=== PATIENT | female | born 1980 ===

== ENCOUNTER 2017-08-15 02:08 | Emergency (ER) | payer OTHER ==
[2017-08-15 02:16] VITALS: RESP 18
[2017-08-15 02:27] VITALS: TEMP 97.1
[2017-08-15] MEDS ORDERED: Sodium Chloride 0.9% 1,000 ML IV STA (02:31)
--- NOTE | 2017-08-15 02:37 | ED PDOC ---
Arrival/HPI - General Chief Complaint: Abdominal Pain Time Seen by Provider: 08/15/17 02:31 Historian: Patient - History of Present Illness Narrative History of Present Illness (Text): 08/15/17 02:32 A 37 year old female, with no significant past medical history, presents to the emergency department complaining of right flank pain. The patient states that the discomfort began yesterday in the right flank area and is currently radiating toward the right lower abdomen. The patient notes that she took Tylenol for the pain but began to vomit shortly after she took it. The patient denies fevers, chills, headache, dizziness, chest pain, shortness of breath, dyspnea on exertion, cough, diarrhea, neck pain, urinary/bowel changes, vaginal discharge or any other complaint. Time/Duration: Other (Yesterday) Symptom Onset: Sudden Symptom Course: Unchanged Activities at Onset: Rest, Light Context: Home Past Medical History - Provider Review Nursing Documentation Reviewed: Yes - Cardiac Hx Hypertension: Yes - Pulmonary Hx Respiratory Disorders: No - Neurological Hx Neurological Disorder: No - HEENT Hx HEENT Disorder: No - Renal Hx Renal Disorder: No - Endocrine/Metabolic Hx Hypothyroidism: Yes - Hematological/Oncological Hx Blood Disorders: No - Integumentary Hx Dermatological Disorder: No - Musculoskeletal/Rheumatological Hx Musculoskeletal Disorders: No - Gastrointestinal Hx Gastrointestinal Disorders: No - Genitourinary/Gynecological Hx Genitourinary Disorders: No - Psychiatric Hx Anxiety: Yes Hx Depression: Yes Hx Substance Use: No - Surgical History Hx Hysterectomy: Yes - Anesthesia Hx Anesthesia: No Family/Social History - Physician Review Nursing Documentation Reviewed: Yes Family/Social History: No Known Family HX Smoking Status: Never Smoked Hx Alcohol Use: No Hx Substance Use: No Allergies/Home Meds Allergies/Adverse Reactions: Allergies No Known Allergies Allergy (Verified 08/15/17 02:17) Home Medications: Home Meds Medication Instructions Recorded Confirmed Levothyroxine Sodium [Unithroid] 50 mcg PO DAILY 08/15/17 08/15/17 Losartan [Cozaar] 50 mg PO DAILY 08/15/17 08/15/17 Mirtazapine [Remeron] 45 mg PO HS 08/15/17 08/15/17 Venlafaxine [Effexor XR] 150 mg PO QAM 08/15/17 08/15/17 clonazePAM [clonAZEPAM] 1 mg PO QAM 08/15/17 08/15/17 clonazePAM [clonAZEPAM] 2 mg PO HS 08/15/17 08/15/17 Review of Systems - Physician Review All systems were reviewed & negative as marked: Yes - Review of Systems Constitutional: absent: Fevers Cardiovascular: absent: Chest Pain Physical Exam - Physical Exam Narrative Physical Exam (Text): 08/15/17 02:38 Constitutional: Appears uncomfortable. Head: Normocephalic. Atraumatic. Eyes: PERRL. ENT: Moist mucous membranes. Neck: Supple. Cardiovascular: Regular rate. Chest: No tenderness. Respiratory: Clear to auscultation bilaterally. GI: Soft Nondistended. Lower abdominal tenderness. No guarding. Back: Right CVA tenderness. Musculoskeletal: No tenderness or swelling of extremities. Skin: No rash. Neurologic: Alert, no focal deficit. Vital Signs Reviewed: Yes Vital Signs Temp Pulse Resp BP Pulse Ox 08/15/17 04:47 67 18 127/69 100 08/15/17 02:26 97.1 F L 82 18 132/83 97 08/15/17 02:12 98.3 F 87 18 139/83 99 Temperature: Afebrile Blood Pressure: Normal Pulse: Regular Respiratory Rate: Normal Appearance: Positive for: Well-Appearing, Non-Toxic, Comfortable Pain Distress: None Mental Status: Positive for: Alert and Oriented X 3 Medical Decision Making ED Course and Treatment: 08/15/17 02:39 Impression: A 37 year old female presents to the emergency department complaining of right flank pain radiating to the right lower abdomen. Plan: -- Abdomen/Pelvis CT -- Labs -- Urinalysis -- Toradol, Zofran, and IV Fluids -- Reassess and disposition Progress Notes: CT Abdomen and Pelvis Without Intravenous Contrast EXAM DATE/TIME: 08/15/2017 2:31 AM Dictated and Authenticated by: Manoj Vazquez MD 08/15/2017 4:24 AM Eastern Time ([place] & [place]) IMPRESSION: Moderate right hydronephrosis secondary to two 3 mm stones at the uterovesical junction. - Lab Interpretations Lab Results: 08/15/17 02:30 08/15/17 02:30 Lab Results 08/15/17 02:34: Urine Color Yellow, Urine Appearance Clear, Urine pH 6.5, Ur Specific [place] >= 1.030, Urine Protein 100 H, Urine Glucose (UA) Negative, Urine Ketones 40 H, Urine Blood Large H, Urine Nitrate Negative, Urine Bilirubin Negative, Urine Urobilinogen 0.2, Ur Leukocyte Esterase Negative, Urine RBC 10 - 15, Urine WBC 0 - 2, Ur Epithelial Cells 1 - 3, Urine Bacteria Small, Urine HCG, Qual Negative 08/15/17 02:30: Sodium 146, Potassium 4.2, Chloride 105, Carbon Dioxide 26, Anion Gap 19, BUN 14, Creatinine 0.9, Est GFR ( Amer) > 60, Est GFR (Non- Af Amer) > 60, Random Glucose 102, Calcium 9.6, Total Bilirubin 0.4, AST 30, ALT 26, Alkaline Phosphatase 43, Total Protein 8.1, Albumin 4.7, Globulin 3.4, Albumin/Globulin Ratio 1.4 08/15/17 02:30: WBC 13.9 H, RBC 4.59, Hgb 14.9, Hct 42.2, MCV 91.9, MCH 32.5, MCHC 35.3, RDW 11.9, Plt Count 221, MPV 11.4 H, Gran % 83.0 H, Lymph % (Auto) 12.2 L, [place] % (Auto) 3.4, Eos % (Auto) 1.1 L, Baso % (Auto) 0.3, Gran # 11.56 H , Lymph # (Auto) 1.7, [place] # (Auto) 0.5, Eos # (Auto) 0.2, Baso # (Auto) 0.04 I have reviewed the lab results: Yes - RAD Interpretation Radiology Orders: 08/15/17 02:31 ABD & PELVIS W/O PO OR IV CONT [CT] Stat - Medication Orders Current Medication Orders: Discontinued Medications Acetaminophen (Tylenol 325mg Tab) 975 mg PO STAT STA Stop: 08/15/17 04:01 Last Admin: 08/15/17 04:14 Dose: 975 mg MAR Pain/Vitals Document 08/15/17 04:14 MANI (Rec: 08/15/17 04:15 MANI [id number]) Pain Reassessment Is This A Pain ReAssessment? Yes Sleep Is patient sleeping during reassessment? No Presence of Pain Presence of Pain Yes Pain Scale Used Pain Scale Used Numeric Location Upper or Lower Lower Pain Location Body Site Abdomen Description Intermittent Intensity 5 Scale Used Numeric Pain Behavior Rubbing Site Sodium Chloride (Sodium Chloride 0.9%) 1,000 mls @ 999 mls/hr IV .Q1H1M STA Stop: 08/15/17 03:31 Last Admin: 08/15/17 02:46 Dose: 999 mls/hr eMAR Start Stop Document 08/15/17 02:46 RG (Rec: 08/15/17 02:46 [id number]) Intravenous Solution Start Date 08/15/17 Start Time 02:46 Ketorolac Tromethamine (Toradol) 30 mg IVP STAT STA Stop: 08/15/17 02:32 Last Admin: 08/15/17 02:41 Dose: 30 mg MAR Pain Assessment Document 08/15/17 02:41 RG (Rec: 08/15/17 02:42 [id number]) Pain Reassessment Is this a pain reassessment? Yes Presence of Pain Presence of Pain Yes Location Left, Right or Bilateral Right Upper or Lower Lower Pain Location Body Site Back Description Description Constant Pain Behavior Rubbing Site IVP Administration Document 08/15/17 02:41 RG (Rec: 08/15/17 02:42 [id number]) Charges for Administration # of IVP Administrations 1 Re-Assess: [facility] Pain Assessment Document 08/15/17 03:41 RG (Rec: 08/15/17 04:01 [id number]) Pain Reassessment Is this a pain reassessment? Yes Sleep Is patient sleeping during reassessment? No Presence of Pain Presence of Pain Yes Description Pain not relieved and LIP/MD was Yes notified Ondansetron HCl (Zofran Inj) 8 mg IVP STAT STA Stop: 08/15/17 02:32 Last Admin: 08/15/17 02:44 Dose: 8 mg IVP Administration Document 08/15/17 02:44 RG (Rec: 08/15/17 02:46 [id number]) Charges for Administration # of IVP Administrations 1 Tamsulosin HCl (Flomax) 0.4 mg PO STAT STA Stop: 08/15/17 04:01 Last Admin: 08/15/17 04:13 Dose: 0.4 mg - Scribe Statement The provider has reviewed the documentation as recorded by the Anurag Sanchez Provider Scribe Attestation: All medical record entries made by the Scribe were at my direction and personally dictated by me. I have reviewed the chart and agree that the record accurately reflects my personal performance of the history, physical exam, medical decision making, and the department course for this patient. I have also personally directed, reviewed, and agree with the discharge instructions and disposition. Disposition/Present on Arrival - Present on Arrival Any Indicators Present on Arrival: No History of DVT/PE: No History of Uncontrolled Diabetes: No Urinary Catheter: No History of Decub. Ulcer: No History Surgical Site Infection Following: None - Disposition Have Diagnosis and Disposition been Completed?: Yes Diagnosis: Kidney stone Disposition: HOME/ ROUTINE Disposition Time: 04:36 Patient Plan: Discharge Condition: STABLE Discharge Instructions (ExitCare): Kidney Stones (DC) Prescriptions: Acetaminophen [Tylenol 325mg tab] 2 tab PO Q4H #30 tab Ibuprofen [Motrin] 1 tab PO Q6 #30 tab Ondansetron ODT [Zofran ODT] 4 mg PO Q8 #12 odt Tamsulosin [Flomax] 0.4 mg PO DAILY #5 cap Referrals: Chetna Erickson MD [Staff Provider] - Follow up with primary Forms: Organizer (Filipino)
[2017-08-15 02:55] LABS: BASO # 0.04 K/mm3 (0.0-2.0); BASO % 0.3 % (0.0-3.0); EOS # 0.2 (0.0-0.7); EOS % 1.1 % (1.5-5.0); GRAN # 11.56 (1.4-6.5); HEMOGLOBIN 14.9 g/dL (12.0-16.0); LYMPH # 1.7 (1.2-3.4); LYMPH % 12.2 % (22.0-35.0); MEAN CELL VOLUME 91.9 fl (80.0-105.0); MEAN CORPUSCULAR HEMOGLOBIN 32.5 pg (25.0-35.0); MEAN CORPUSCULAR HGB CONC 35.3 g/dl (31.0-37.0); MEAN PLATELET VOLUME 11.4 fl (7.0-11.0); MONO # 0.5 (0.1-0.6); MONO % 3.4 % (1.0-6.0); RBC 4.59 10^6/uL (3.5-6.1); RED CELL DISTRIBUTION WIDTH 11.9 % (11.5-14.5); WHITE BLOOD COUNT 13.9 10^3/ul (4.5-11.0)
[2017-08-15 02:57] LABS: PH,URINE 6.5 (4.7-8.0); URINE BILIRUBIN NEGATIVE (NEGATIVE); URINE BLOOD LARGE (NEGATIVE); URINE GLUCOSE (UA) NEGATIVE (NEGATIVE); URINE LEUKOCYTE ESTERASE NEGATIVE Leu/uL (NEGATIVE); URINE PROTEIN 100 mg/dL (<30 mg/dL); URINE UROBILINOGEN 0.2 E.U./dL (<1 E.U./dL)
[2017-08-15 03:01] LABS: ALB/GLOB RATIO 1.4 (1.1-1.8); ALBUMIN 4.7 g/dL (3.0-4.8); ALT/SGPT 26 U/L (7-56); AST/SGOT 30 U/L (14-36); BLOOD UREA NITROGEN 14 mg/dL (7-21); CALCIUM 9.6 mg/dL (8.4-10.5); GFR AFRICAN-AMERICAN > 60; GFR NON-AFRICAN AMERICAN > 60
[2017-08-15 03:04] LABS: HCG,QUALITATIVE URINE NEGATIVE (NEGATIVE); URINE APPEARANCE CLEAR (CLEAR); URINE COLOR YELLOW (YELLOW)
[2017-08-15 03:16] LABS: URINE BACTERIA SMALL (NEG); URINE WBC 0 - 2 /hpf (0-6)
[2017-08-15 04:48] VITALS: BP 127/69; PULSE 67; O2SAT 100
--- NOTE | 2017-08-15 09:39 | CT ---
PROCEDURE: CT Abdomen and Pelvis without intravenous contrast HISTORY: R flank pain COMPARISON: None. TECHNIQUE: Without contrast.. Contrast Dose: Radiation dose: Total exam DLP = Total exam DLP = 252 mGy-cm. This CT exam was performed using one or more of the following dose reduction techniques: Automated exposure control, adjustment of the mA and/or kV according to patient size, and/or use of iterative reconstruction technique. FINDINGS: LOWER THORAX: Unremarkable. LIVER: Unremarkable. No gross lesion or ductal dilatation. GALLBLADDER AND BILE DUCTS: Unremarkable. PANCREAS: Unremarkable. No gross lesion or ductal dilatation. SPLEEN: Unremarkable. ADRENALS: Unremarkable. No mass. KIDNEYS AND URETERS: Unremarkable. No hydronephrosis. No solid mass. VASCULATURE: Unremarkable. No aortic aneurysm. BOWEL: Unremarkable. No obstruction. No gross mural thickening. APPENDIX: Unremarkable. Normal appendix. PERITONEUM: Unremarkable. No free fluid. No free air. LYMPH NODES: Unremarkable. No enlarged lymph nodes. BLADDER: There are 2 adjacent 3 mm stones in the right UVJ. There is mild right-sided hydronephrosis and hydroureter. Multiple bilateral small nonobstructing stones in both kidneys REPRODUCTIVE: Unremarkable. BONES: No acute fracture. OTHER FINDINGS: The report concurs with the preliminary [facility] report IMPRESSION: There are 2 adjacent 3 mm stones in the right UVJ. There is mild right-sided hydronephrosis and hydroureter. Nephrolithiasis
== END 2017-08-15 05:00 | disposition home or self-care (01) ==
LOC: ED 02:08
DX: N20.0 Calculus of kidney (principal)
CPT/HCPCS: 74176; 80053; 81001; 84703; 85025; 87086; 96374; 96375; 99285; J1885; J2405; J7040

== ENCOUNTER 2017-08-16 15:14 | Inpatient (IN) | payer OTHER ==
[2017-08-16 15:17] VITALS: BMI 24.2
[2017-08-16] MEDS ORDERED: Sodium Chloride 0.9% 1,000 ML IV STA (15:24)
[2017-08-16] MEDS ORDERED: Morphine 4 mg/ml ISec IVP STA (15:24)
--- NOTE | 2017-08-16 15:42 | ED PDOC ---
Arrival/HPI - General Chief Complaint: Abdominal Pain Time Seen by Provider: 08/16/17 15:21 Historian: Patient - History of Present Illness Narrative History of Present Illness (Text): 08/16/17 15:23 37 y/o female, pmh including 2 rt. UVJ 3mm stone which was diagnose yesterday, nkda, c/o rt. flank pain. Pt. stated that she has urinary symptoms, still has rt. flank pain, medication received in the ER and outpatient treatment is not working, no vaginal bleeding, no night sweat, no fever or chills, no palpitation , no rash, no other medical or psychological complaints. Pt. received flomax in the ER. Past Medical History - Provider Review Nursing Documentation Reviewed: Yes - Infectious Disease Hx of Infectious Diseases: None - Cardiac Hx Hypertension: Yes - Pulmonary Hx Respiratory Disorders: No - Neurological Hx Neurological Disorder: No - HEENT Hx HEENT Disorder: No - Renal Hx Renal Disorder: No - Endocrine/Metabolic Hx Hypothyroidism: Yes - Hematological/Oncological Hx Blood Disorders: No - Integumentary Hx Dermatological Disorder: No - Musculoskeletal/Rheumatological Hx Musculoskeletal Disorders: No - Gastrointestinal Hx Gastrointestinal Disorders: No - Genitourinary/Gynecological Hx Genitourinary Disorders: No - Psychiatric Hx Anxiety: Yes Hx Depression: Yes Hx Substance Use: No - Surgical History Hx Hysterectomy: Yes - Anesthesia Hx Anesthesia: No Family/Social History - Physician Review Nursing Documentation Reviewed: Yes Family/Social History: Unknown Family HX Smoking Status: Never Smoked Hx Alcohol Use: No Hx Substance Use: No Allergies/Home Meds Allergies/Adverse Reactions: Allergies No Known Allergies Allergy (Verified 08/15/17 02:17) Home Medications: Home Meds Medication Instructions Recorded Confirmed Levothyroxine Sodium [Unithroid] 50 mcg PO DAILY 08/15/17 08/15/17 Losartan [Cozaar] 50 mg PO DAILY 08/15/17 08/15/17 Mirtazapine [Remeron] 45 mg PO HS 08/15/17 08/15/17 Venlafaxine [Effexor XR] 150 mg PO QAM 08/15/17 08/15/17 clonazePAM [clonAZEPAM] 1 mg PO QAM 08/15/17 08/15/17 clonazePAM [clonAZEPAM] 2 mg PO HS 08/15/17 08/15/17 Review of Systems - Review of Systems Constitutional: absent: Fatigue, Fevers Eyes: absent: Vision Changes ENT: absent: Hearing Changes Respiratory: absent: SOB, Cough Cardiovascular: absent: Chest Pain Gastrointestinal: absent: Abdominal Pain, Nausea, Vomiting Genitourinary Female: Other (+rt. flank) Skin: absent: Rash, Pruritis Neurological: absent: Headache, Dizziness Psychiatric: absent: Anxiety, Depression Physical Exam Vital Signs Reviewed: Yes Vital Signs Temp Pulse Resp BP Pulse Ox 08/16/17 15:14 98.7 F 68 16 115/70 100 Temperature: Afebrile Blood Pressure: Normal Pulse: Regular Respiratory Rate: Normal Appearance: Positive for: Well-Appearing, Non-Toxic Pain Distress: Severe Mental Status: Positive for: Alert and Oriented X 3 - Systems Exam Head: Present: Atraumatic, Normocephalic Pupils: Present: PERRL Extroacular Muscles: Present: EOMI Conjunctiva: Present: Normal Mouth: Present: Moist Mucous Membranes Neck: Present: Normal Range of Motion Respiratory/Chest: Present: Clear to Auscultation, Good Air Exchange. No: Respiratory Distress, Accessory Muscle Use Cardiovascular: Present: Regular Rate and Rhythm, Normal S1, S2. No: Murmurs Abdomen: No: Tenderness, Distention, Peritoneal Signs, Rebound, Guarding Back: Present: Normal Inspection, CVA Tenderness (+rt. cva) Upper Extremity: Present: Normal Inspection. No: Cyanosis, Edema Lower Extremity: Present: Normal Inspection. No: Edema Neurological: Present: GCS=15, Speech Normal, Motor Func Grossly Intact, Gait Normal, Memory Normal Skin: Present: Warm, Dry, Normal Color. No: Rashes Psychiatric: Present: Alert, Oriented x 3, Normal Insight, Normal Concentration Medical Decision Making ED Course and Treatment: 08/16/17 15:44 -labs/ua -abdominal xray -IVF/toradol -Observe and reassess 08/16/17 17:37 -Urine hcg is negative. -Labs show wbc 11.9 -UA show +UTI, IV rocephine ordered -Abdominal xray show no active disease -Pt. has new on set of leukcoytosis with UTI, failure of the outpatient treatment, will admit for analgesic and IV antibiotic. 08/16/17 19:18 -I spoke to Dr. Agrawal, discussed about the case/labs/ua/radiology study, agreed to admit for full admission to her service which she request Dr. Flako Egan for routine consult for possible stent. -I discussed with Dr. Iglesias about the case/labs/radiology result, agreed on the admission and he will put in the admission. - Lab Interpretations Lab Results: 08/16/17 16:39 08/16/17 16:39 Lab Results 08/16/17 16:39: Sodium 145, Potassium 4.0, Chloride 107, Carbon Dioxide 24, Anion Gap 18, BUN 12, Creatinine 0.8, Est GFR ( Amer) > 60, Est GFR (Non- Af Amer) > 60, Random Glucose 80, Calcium 9.5, Magnesium 1.8, Total Bilirubin 0.5, AST 32, ALT 30, Alkaline Phosphatase 41, Total Protein 7.2, Albumin 4.2, Globulin 3.0, Albumin/Globulin Ratio 1.4 08/16/17 16:39: WBC 11.9 H, RBC 4.28, Hgb 13.7, Hct 39.4, MCV 92.1, MCH 32.0, MCHC 34.8, RDW 12.0, Plt Count 195, MPV 11.4 H, Gran % 88.4 H, Lymph % (Auto) 6.9 L, [place] % (Auto) 3.8, Eos % (Auto) 0.6 L, Baso % (Auto) 0.3, Gran # 10.49 H , Lymph # (Auto) 0.8 L, [place] # (Auto) 0.5, Eos # (Auto) 0.1, Baso # (Auto) 0.03 08/16/17 15:44: Urine Color Yellow, Urine Appearance Clear, Urine pH 6.0, Ur Specific [place] 1.010, Urine Protein Trace H, Urine Glucose (UA) Negative, Urine Ketones 40 H, Urine Blood Large H, Urine Nitrate Negative, Urine Bilirubin Negative, Urine Urobilinogen 0.2, Ur Leukocyte Esterase Small H, Urine RBC 5 - 10, Urine WBC 2 - 5, Ur Epithelial Cells 4 - 5, Urine Bacteria Neg I have reviewed the lab results: Yes - RAD Interpretation Radiology Orders: 08/16/17 15:41 ABD 2 VIEWS (FLAT/UP OR DECUB) [RAD] Stat HISTORY: KUB, rt. renal stone COMPARISON: No prior. FINDINGS: BOWEL: Normal. No obstruction. No free air. BONES: Normal. OTHER FINDINGS: None. IMPRESSION: No active disease. Support Technician: Radiologist - Medication Orders Current Medication Orders: Sodium Chloride (Sodium Chloride 0.9%) 1,000 mls @ 200 mls/hr IV .Q5H BETH Discontinued Medications Sodium Chloride (Sodium Chloride 0.9%) 1,000 mls @ 999 mls/hr IV .Q1H1M STA Stop: 08/16/17 16:24 Last Admin: 08/16/17 17:26 Dose: 999 mls/hr eMAR Start Stop Document 08/16/17 17:26 [email or web address] (Rec: 08/16/17 17:26 [facility] [id number]) Intravenous Solution Start Date 08/16/17 Start Time 17:26 End Date 08/16/17 Ceftriaxone Sodium (Rocephin 1 Gram Ivpb) 1 gm in 100 mls @ 200 mls/hr IVPB STAT STA PRN Reason: Protocol Stop: 08/16/17 18:03 Ketorolac Tromethamine (Toradol) 30 mg IVP STAT STA Stop: 08/16/17 15:41 Last Admin: 08/16/17 17:26 Dose: 30 mg MAR Pain Assessment Document 08/16/17 17:26 [email or web address] (Rec: 08/16/17 17:27 [facility] [id number]) Pain Reassessment Is this a pain reassessment? No Sleep Is patient sleeping during reassessment? No Presence of Pain Presence of Pain Yes Pain Scale Used Pain Scale Used Numeric Location Pain Location Body Site Abdomen Description Description Constant Intensity of Pain at present 7 Pain Behavior Facial Grimacing Aggravating Factors Changing Position Alleviating Factors/Management Medication Techniques Alleviating Factors Medication IVP Administration Document 08/16/17 17:26 [email or web address] (Rec: 08/16/17 17:27 [facility] [id number]) Charges for Administration # of IVP Administrations 1 - PA / PRINCIPAL ENGINEER / Resident Statement MD/DO has reviewed & agrees with the documentation as recorded. Disposition/Present on Arrival - Present on Arrival Any Indicators Present on Arrival: No History of DVT/PE: No History of Uncontrolled Diabetes: No Urinary Catheter: No History of Decub. Ulcer: No History Surgical Site Infection Following: None - Disposition Have Diagnosis and Disposition been Completed?: Yes Diagnosis: Ureter colic, Failure of outpatient treatment, UTI (urinary tract infection), Leukocytosis Disposition: HOSPITALIZED Disposition Time: 15:44 Patient Plan: Admission, Observation Patient Problems: Current Active Problems Problem Status Onset Failure of outpatient treatment Acute Leukocytosis Acute UTI (urinary tract infection) Acute Ureter colic Acute Condition: STABLE Referrals: PCP,NO [Primary Care Provider] - Follow up with primary Forms: [employer] (Citizen Of [place])
[2017-08-16 17:09] LABS: URINE APPEARANCE CLEAR (CLEAR); URINE BILIRUBIN NEGATIVE (NEGATIVE); URINE BLOOD LARGE (NEGATIVE); URINE COLOR YELLOW (YELLOW); URINE GLUCOSE (UA) NEGATIVE (NEGATIVE); URINE LEUKOCYTE ESTERASE SMALL Leu/uL (NEGATIVE); URINE PROTEIN TRACE mg/dL (<30 mg/dL); URINE UROBILINOGEN 0.2 E.U./dL (<1 E.U./dL)
[2017-08-16 17:10] LABS: BASO # 0.03 K/mm3 (0.0-2.0); BASO % 0.3 % (0.0-3.0); EOS # 0.1 (0.0-0.7); EOS % 0.6 % (1.5-5.0); GRAN # 10.49 (1.4-6.5); GRAN % 88.4 % (50.0-68.0); HEMOGLOBIN 13.7 g/dL (12.0-16.0); LYMPH # 0.8 (1.2-3.4); LYMPH % 6.9 % (22.0-35.0); MEAN CELL VOLUME 92.1 fl (80.0-105.0); MEAN CORPUSCULAR HGB CONC 34.8 g/dl (31.0-37.0); MEAN PLATELET VOLUME 11.4 fl (7.0-11.0); MONO # 0.5 (0.1-0.6); MONO % 3.8 % (1.0-6.0); RBC 4.28 10^6/uL (3.5-6.1); WHITE BLOOD COUNT 11.9 10^3/ul (4.5-11.0)
[2017-08-16 17:18] LABS: ALB/GLOB RATIO 1.4 (1.1-1.8); ALBUMIN 4.2 g/dL (3.0-4.8); ALT/SGPT 30 U/L (7-56); AST/SGOT 32 U/L (14-36); BLOOD UREA NITROGEN 12 mg/dL (7-21); CALCIUM 9.5 mg/dL (8.4-10.5); GFR AFRICAN-AMERICAN > 60; GFR NON-AFRICAN AMERICAN > 60
[2017-08-16 17:28] LABS: URINE BACTERIA NEG (NEG)
--- NOTE | 2017-08-16 17:32 | RAD ---
HISTORY: KUB, rt. renal stone COMPARISON: No prior. FINDINGS: BOWEL: Normal. No obstruction. No free air. BONES: Normal. OTHER FINDINGS: None. IMPRESSION: No active disease.
[2017-08-16] MEDS ORDERED: cefTRIAXone 1 gm 1 GM/100 ML BAG IVPB STA (17:34)
[2017-08-16] MEDS: Sodium Chloride 0.9% 1,000 ML IV SCH (19:39)
[2017-08-16 20:00] LABS: VENOUS BLOOD GAS BASE EXCESS -2.5 mmol/L (0.0-2.0); VENOUS BLOOD GAS PO2 43 mm/Hg (30-55); VENOUS BLOOD PH 7.31 (7.32-7.43)
[2017-08-16] MEDS ORDERED: Pneumococcal 23-Valent Vaccine IM ONE (22:20)
[2017-08-17] MEDS: Sodium Chloride 0.9% 1,000 ML IV SCH ×3 (00:06→18:58)
[2017-08-17] MEDS: cefTRIAXone 1 gm 1 GM/100 ML BAG IVPB SCH (10:21)
--- NOTE | 2017-08-17 19:10 | PN ---
DATE: 08/17/2017 SUBJECTIVE: This 37-year-old female remains hospitalized with right flank pain in the setting of obstructive hydronephrosis and two ureteral kidney stones evident on recent CT of the abdomen, unresponsive to outpatient management with fluid and oral analgesia. Of note, the patient denies any fever, chills, chest pain, or shortness of breath. PHYSICAL EXAMINATION: VITAL SIGNS: Temperature of 98.4, respirations 20, pulse 70, and blood pressure 108/59 with a pulse ox of 100% on room air. GENERAL: She is on clear liquid diet and has tolerated 680 mL of p.o. intake thus far today. HEENT: Head: Normocephalic, atraumatic. Eyes: No icterus. Ears: Clear. Throat: Noninjected. NECK: Supple. HEART: Regular, S1 and S2. LUNGS: Clear. ABDOMEN: Soft. Right flank pain on palpation. EXTREMITIES: No edema. SKIN: Without rash. NEUROLOGIC: Intact. PSYCHOLOGIC: Alert. VASCULAR: Legs warm to touch. LABORATORY COUNT: White count 11,900, hemoglobin 13.7, hematocrit 39.4, and platelets 195,000. Sodium 145, K 4, chloride 107, bicarb 24. BUN 12, creatinine 0.8. Random blood sugar 80. Urinalysis showed rbc's per high-powered field. Previous urine culture showed no growth at 24 hours. IMPRESSION: A 37-year-old female with acute nephrolithiasis involving right ureteral junction hydroureter and dysuria. PLAN: As discussed with the patient and Nursing will be for the patient to be evaluated by Dr. Flako Egan from Urology for possible cysto-retrograde studies and possible stent placement of non passing stones. The patient is receiving IV fluids and has been instructed to strain all urine and will be given a trial of Flomax 0.4 mg p.o. daily. She is receiving Rocephin 1 g IV every 24 hours, has been ordered for 0.9 saline at 100 an hour, Toradol 30 mg IV every 8 hours p.r.n. severe pain and Tylenol 650 p.o. every 6 hours p.r.n. mild to moderate pain. I will order basic metabolic panel and CBC for a.m., and based on the patient's clinical progress, additional testings will be entertained. All of the above was reviewed in detail with the patient and Nursing. All questions were answered. Stella Omalley MD
[2017-08-18 07:24] VITALS: BP 117/74; PULSE 60; RESP 20; TEMP 98.2; O2SAT 99
--- NOTE | 2017-08-18 07:29 | HP ---
DATE OF EXAM: 08/17/2017 HISTORY OF PRESENT ILLNESS: This 37-year-old female was admitted to [facility], [place] with a right UVJ 3 mm stone, previously diagnosed at [facility] 1 day earlier in the ER, now re-presenting with intractable pain. The patient has persistent dysuria, right flank pain, and is admitted for pain management and urology evaluation of persistent intractable right flank pain in the setting of UVJ non-passable stone. In the emergency room, the patient was noted to have bacteruria and elevated white blood cell count and is admitted for urinary tract infection in the setting of a right ureteral stone. This patient is to be evaluated by Dr. Egan from Urology with consideration for cystoscopy and possible stent placement if she is unable to pass the stone. PAST MEDICAL HISTORY: Unremarkable. OUTPATIENT MEDICATIONS: None. SOCIAL HISTORY: The patient is a nondrinker, nonsmoker, non IV drug misuser. ALLERGIES: DENIES ANY ALLERGIES TO MEDICATION. REVIEW OF SYSTEMS: CONSTITUTIONAL: Denied fever or chills. HEAD: Denied any knowledge of seizure. EYES: Denied change in visual acuity. EARS: Denied swallowing difficulty. NECK: Denied stiffness. CARDIAC: Unremarkable. PULMONARY: No cough. No hemoptysis. GASTROINTESTINAL: No hematemesis. No melena. GENITOURINARY: As per HPI. No knowledge of previous kidney stones. ENDOCRINOLOGIC: Unremarkable. PSYCHOLOGIC: Has no chronic depression or anxiety. NEUROLOGIC: No knowledge of stroke. GYNECOLOGIC: Has a history of natural vaginal deliveries. VASCULAR: No claudication. FAMILY HISTORY: Noncontributory. PHYSICAL EXAMINATION: VITAL SIGNS: Temperature 98.7, respirations 16, pulse 72 and blood pressure 115/70 with a pulse ox of 100%. HEENT: Head: Normocephalic, atraumatic. Eyes: No icterus. Ears: Clear. Throat: Noninjected. NECK: Supple. HEART: Regular S1, S2. LUNGS: Clear. ABDOMEN: Soft with right flank pain on palpation. EXTREMITIES: No clubbing, no cyanosis, no edema. SKIN: No rash. VASCULAR: Legs warm to touch. PSYCHOLOGIC: Alert and oriented x3. NEUROLOGIC: Grossly intact. LABORATORY DATA: White count 11,900, hemoglobin 13.7, hematocrit 39.4, platelets 195,000. Sodium 145, K 4, chloride 107, bicarb 24, BUN 12, creatinine 0.8, random blood sugar 80. All liver function testing was normal including bilirubin 0.5, AST 32, ALT 30, and alkaline phosphatase 41. Magnesium normal at 1.8. Urinalysis showed large blood, negative nitrites, 5-10 rbc's per high-power field, no bacteria. Abdominal x-ray was reviewed, it showed no active disease, no evidence of obstruction. Abdominopelvic CT from 08/15/2017 was reviewed, it showed 2 adjacent 3 mm stones in the right UVJ area with mild right-sided hydronephrosis and hydroureter consistent with acute nephrolithiasis. IMPRESSION: This is a 37-year-old female with right flank pain, ureteral junction obstruction with hydronephrosis, unresponsive to outpatient therapy, now admitted with intractable flank pain, leukocytosis, rule out urinary tract infection, rule out pyelonephritis. PLAN: As discussed with the emergency room physician, will be to admit this patient, obtain urological consultation, start her on IV fluids, strain all urine, pain management, IV antibiotics while culturing urine. She is ordered to have a clear liquid diet as tolerated. All of the above was reviewed in detail with the patient, nursing, and emergency room physician. All questions were answered. Stella Omalley MD MTDArchie
[2017-08-18] MEDS: cefTRIAXone 1 gm 1 GM/100 ML BAG IVPB SCH (09:34)
--- NOTE | 2017-08-19 08:17 | DS ---
DATE OF EVALUATION; 08/18/2017 FINAL DIAGNOSES: Right kidney nephrolithiasis, obstruction at the ureterovesical junction with hydroureter, urinary tract infection, ruled out. DISPOSITION: Home. FOLLOWUP: With Dr. Flako Egan, Urology as per his recommendation in one week. DISCHARGE MEDICATIONS: Flomax 0.4 mg p.o. daily #14, no refill and Toradol 10 mg p.o. every 6 hours p.r.n. severe pain, #15 tablets, no refill. SUMMARY: This 37-year-old female was admitted to the [facility] after presenting to the Emergency Room and being noted on CAT scan to have a mild right hydroureter in the setting of right UVJ nephrolithiasis. The patient represented with pain, difficulty and painful voiding and mildly elevated white count. She was admitted, fully cultured and noted to have no growth on urine cultures. Vital signs showed no fever. The patient was seen in consultation by Dr. Flako Egan who cleared the patient for discharge to home. She will see him for followup of symptomatology and mild right hydroureter. At the time of discharge, the patient states she is voiding easily with no dysuria and is passing gravel. She denied fever, chills, chest pain or shortness of breath. DISCHARGE PHYSICAL EXAM: VITAL SIGNS: Showed temperature 98.2, respirations 20, pulse 60, blood pressure 117/74. Pulse ox 99% room air. LABORATORY DATA: White count 11,900, hemoglobin 13.7, hematocrit 39.4, platelets 195,000. Chemistry: Sodium 145, K 4, chloride 107, bicarb 24, BUN 12, creatinine 0.8, random blood sugar 80. All liver function testing was normal including bilirubin 0.5, AST 32, ALT 30 and alk phos 41. Urinalysis showed no bacteria and urine culture was indeed negative. The patient was cleared for discharge to home. She was allowed to have regular diet. She was advised to drink 2 liters of water daily and was given followup date to see Dr. Egan in his office and his phone number. She was also advised for any change in signs and symptoms to present directly to the [facility] ER. All of the above instructions were reviewed with the patient and nurse, Shalini Streeter, registered nurse. All questions were answered. Stella Omalley MD [facility] # [id number] [facility]ITAL[facility]
--- NOTE | 2017-08-19 08:36 | CON ---
DATE: 08/18/2017 GENITOURINARY CONSULTATION CHIEF COMPLAINT: Abdominal pain. HISTORY OF PRESENT ILLNESS: This is a 37-year-old female who is seen in her room at [facility]. The patient originally was seen in the emergency room on 08/16/2017. She was diagnosed with ureteral calculi and sent home. The patient reports the pain increased to the point where she could not tolerated it anymore, it was about 7/10. She did not have any fever or chills. She did not have dysuria. She had urinary frequency and urgency with no gross hematuria. She presented back to the emergency room where she was admitted for pain management. The patient reports this is her first stone episode. She has two children. She denies other prior surgery, no history of diabetes, hypertension or other chronic medical issues. consultation was then requested regarding the above. PAST MEDICAL HISTORY: None significant. MEDICATIONS AT HOME: No chronic medications. Currently on Colace, lactulose, Flomax, Rocephin, Toradol and Tylenol. ALLERGIES: NO KNOWN DRUG ALLERGIES. FAMILY HISTORY: Noncontributory for this admission. SOCIAL HISTORY: Denies smoking or EtOH use. REVIEW OF SYSTEMS: Twelve-point review of systems was obtained. Positive for right lower quadrant abdominal pain which has improved. Positive for urinary frequency and urgency. All other systems are negative. PHYSICAL EXAMINATION: GENERAL: The patient is awake and alert, answering questions. She is no acute distress. She has been afebrile. VITAL SIGNS: Temperature 98.2, pulse of 60, BP 117/74, respirations were 20. NECK: Supple. There is no adenopathy. CHEST: Revealed normal inspiratory effort. CARDIAC: Showed a positive S1, S2. There is no peripheral edema noted. ABDOMEN: The abdomen is soft, nontender, nondistended. There is no hepatosplenomegaly. There is no costovertebral angle tenderness. EXTREMITIES: No cyanosis, clubbing or edema. LABORATORY EXAM: WBC count was 11.9 on 08/16/2017. Urinalysis showed 5-10 rbc's, 2-5 wbc's, negative for nitrites. GFR greater than 60. IMAGING STUDIES: On radiologic exam, the patient had a CT scan of the abdomen and pelvis from 08/15/2017, which showed that there were two adjacent 3 mm stones at the right UVJ. There was mild right hydroureteronephrosis. The patient also had plain KUB on 08/16/2017, but no stones were seen on that exam. IMPRESSION AND PLAN: This is a 37-year-old female admitted with renal colic. Urologically, the patient is currently feeling well with no further pain. I have started her on tamsulosin yesterday. She has not noted passing any stones. The patient has no indication for emergent urologic surgical intervention. I discussed with her that we could electively perform an ureteroscopy and remove the stones; however, given the size of the stones, she will likely pass these on her own. The patient agrees to try and pass the stones on her own. She can be discharged home. She will drink a lot of fluids orally. She needs to be discharged home on Flomax for 1 week and pain medications. Patient will then follow up with me in the office in a couple of weeks and we will plan repeat imaging make sure the stones have passed. If the patient's pain becomes severe or she develops fever, chills or other issues, she will return to the hospital and at that point she will need a surgical procedure likely stent placement which should aid in passage of the stones. Thank you for allowing me to participate the care of this patient. Flako Egan MD
== END 2017-08-18 13:29 | disposition home or self-care (01) | DRG 694 ==
LOC: ED 15:14 → ERH 19:18 → 5RNO 22:19
PROVIDERS: ADMIT Internal Medicine; ATTEND Internal Medicine
DX: N13.2 Hydronephrosis with renal and ureteral calculous obstruction (principal); N39.0 Urinary tract infection, site not specified; E03.9 Hypothyroidism, unspecified; I10 Essential (primary) hypertension; Z90.710 Acquired absence of both cervix and uterus

== ENCOUNTER 2017-08-16 15:14 | Emergency (ER) | payer OTHER ==
[2017-08-16 15:17] VITALS: BMI 24.2
== END 2017-08-16 19:18 | disposition home or self-care (01) ==
LOC: ED 15:14
DX: N39.0 Urinary tract infection, site not specified (principal); D72.829 Elevated white blood cell count, unspecified; N23 Unspecified renal colic; I10 Essential (primary) hypertension; E03.9 Hypothyroidism, unspecified; Z90.710 Acquired absence of both cervix and uterus